=== PATIENT | female | born 2000 | race Caucasian/White ===

== ENCOUNTER 2020-08-04 21:38 | Emergency (ER) | payer OTHER ==
[~2020-08-04] VITALS: Ht 165.1 cm; Wt 61.3 kg
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
[2020-08-05] MEDS ORDERED: SODIUM CHLORIDE FLUSH 10ML SYR IVF ONE (01:30)
[2020-08-05] MEDS ORDERED: MORPHINE SULFATE 4 MG/ML, 1ML IVPush PRN (01:30)
[2020-08-05] MEDS ORDERED: ONDANSETRON 2MG/ML, 2ML IVPush ONE (01:30)
[2020-08-05 01:48] LABS: BASOPHILS % (AUTO) 1 % (0-1); EOSINOPHILS % (AUTO) 2 % (1-7); LYMPHOCYTES % (AUTO) 32 % (22-44); MEAN CORPUSCULAR HEMOGLOBIN 31.5 pg (27.0-34.8); MEAN CORPUSCULAR HGB CONC 35.2 g/dL (32.4-35.8); MEAN PLATELET VOLUME 7.8 fL (7.4-10.4); MONOCYTES % (AUTO) 8 % (2-9); NEUTROPHILS % (AUTO) 58 % (42-75); PLATELET COUNT 496 x10^3/uL (130-400); RED BLOOD COUNT 4.93 x10^6/uL (3.82-5.3); RED CELL DISTRIBUTION WIDTH 12.6 % (9.6-15.2)
[2020-08-05 02:03] LABS: ALBUMIN 4.1 g/dL (3.4-5.0); ANION GAP 7 mmol/L (5-15); CALCIUM 9.4 mg/dL (8.5-10.1); CHLORIDE 105 mmol/L (98-107)
[2020-08-05 02:08] LABS: ALANINE AMINOTRANSFERASE 311 U/L (12-78); ALKALINE PHOSPHATASE 155 U/L (45-117); BILIRUBIN,TOTAL 0.7 mg/dL (0.2-1.0); CREATININE 0.77 mg/dL (0.55-1.02); TOTAL PROTEIN 8.6 g/dL (6.4-8.2)
[2020-08-05] MEDS ORDERED: ONDANSETRON 2MG/ML, 2ML ONE (02:32)
[2020-08-05] MEDS ORDERED: MORPHINE SULFATE 4 MG/ML, 1ML ONE (02:33)
[2020-08-05] MEDS ORDERED: OMNIPAQUE 350 MG/ML, 75ML BOTTLE ONE (02:50)
--- NOTE | 2020-08-05 03:15 | NUR ---
PT BACK FROM IMAGING, MEDICATED PER MAR
[2020-08-05 05:40] VITALS: BP 112/76
--- NOTE | 2020-08-05 05:41 | NUR ---
Patient/Caregiver given discharge instructions and they have confirmed that they understand the instructions. Patient ambulatory with steady gait. NAD, all questions answered appropriately, denies additional needs at this time. No personal belongings left in room after discharge.
[2020-08-06] MEDS ORDERED: ASPI81TA59 PO (11:30)
== END 2020-08-05 05:44 | disposition home or self-care (01) ==
LOC: ED 08-05 05:24
DX: R07.89 Other chest pain (principal); R10.11 Right upper quadrant pain; R94.5 Abnormal results of liver function studies; G43.909 Migraine, unspecified, not intractable, without status migrainosus
CPT/HCPCS: 36415; 71045; 71275; 76700; 80053; 83690; 84703; 85025; 85379; 93005; 96374; 96375; 99285; J2270; J2405; Q9967

== ENCOUNTER 2020-08-06 11:17 | Emergency (ER) | payer OTHER ==
[~2020-08-06] VITALS: Ht 165.1 cm; Wt 59.0 kg
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
[2020-08-06] MEDS ORDERED: ASPI81TA59 PO (11:30)
[2020-08-06] MEDS ORDERED: KETOROLAC 30 MG/1 ML IVPush ONE (11:30)
--- NOTE | 2020-08-06 11:37 | NUR ---
XR AT BS
[2020-08-06] MEDS ORDERED: KETOROLAC 30 MG/1 ML ONE (11:40)
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
[2020-08-06 13:01] VITALS: BP 110/69
== END 2020-08-06 13:03 | disposition home or self-care (01) ==
LOC: ED 12:24
DX: R07.89 Other chest pain (principal); R94.31 Abnormal electrocardiogram [ECG] [EKG]
CPT/HCPCS: 71045; 93005; 96372; 99283; J1885